=== PATIENT | male | born 1995 | race African-American/Black ===

== ENCOUNTER 2017-11-20 21:35 | Emergency (ER) | payer SELFPAY ==
[~2017-11-20] VITALS: Ht 182.9 cm; Wt 70.0 kg
[~2017-11-20 21:35] MED LIST: OMEP40CA2 PO; PROM25TA10 PO
[2017-11-20 21:50] VITALS: BP 144/81; PULSE 73; RESP 18; TEMP 98.5; O2SAT 98
[2017-11-21 03:26] VITALS: BP 140/91; PULSE 56; RESP 16; O2SAT 100
[2017-11-21] MEDS ORDERED: SODIUM CHLOR 0.9% 1000 ML INJ 1,000 ML IV ONE (03:30)
[2017-11-21] MEDS ORDERED: FAMOTIDINE 20 MG/2 ML VIAL IV PUSH SCH (03:30)
--- NOTE | 2017-11-21 03:32 | PD ---
HPI Chief Complaint: GI Complaint Time Seen by Provider: 03:16 Travel History International Travel<30 days: No Contact w/Intl Traveler<30days: No Traveled to known affect area: No History of Present Illness HPI The patient is a 22 year old male who presents to the [facility] [address] emergency department with a history of abdominal pain in the midepigastric area and center of the upper abdomen that he reports began at 5 AM yesterday. He reports that he had diarrhea intermittently throughout the day yesterday and 3 episodes today. He reports that the stool is green to brown in color. He denies having any mucus or blood in his stool. He reports having a sick contact from his nephew who had diarrhea 2 weeks ago. He denies having any nausea or vomiting. He reports having radiation of pain up into his chest. He reports having of burning sensation in his chest. He reports that he has had problems with indigestion and heartburn in the past, however he does not have a primary care physician currently. He has not been taking any [id number]-saepdgy acid reducers. He reports that he has been taking Pepto-Bismol without relief. He denies having any known fevers. He reports that he has had a dry cough since yesterday. On review of systems, he denies having any congestion, neck pain, shortness of breath, urinary symptoms, or neurologic symptoms. [facility] Past Medical History Narrative Medical The patient's past medical history is significant for having a heart murmur as a child, history of acid reflux and gastritis. He denies ever having endoscopy or colonoscopy. Cardiovascular Problems: Yes (MURMUR as a child) Diminished Hearing: No Integumentary: Yes (RECENT SKIN ERUPTIONS) Immunizations Current: No (unknown) Tetanus Vaccination: < 5 Years Influenza Vaccination: No Past Surgical History Surgical History: No Previous Surgery Social History Alcohol Use: No Tobacco Use: No Substance Use: No Allergies-Medications (Allergen,Severity, Reaction): Coded Allergies: Penicillins (Verified Allergy, Severe, 11/20/17) hives milk (Unverified Allergy, Mild, RASH, 11/20/17) Reported Meds & Prescriptions Reported Meds & Active Scripts Active No Active Prescriptions or Reported Medications Review of Systems Except as stated in HPI: all other systems reviewed are Neg General / Constitutional: No: Fever Eyes: No: Visual changes HENT: No: Headaches, Rhinorrhea, Congestion Cardiovascular: No: Chest Pain or Discomfort Respiratory: Positive: Cough, No: Shortness of Breath Gastrointestinal: Positive: Diarrhea, Abdominal Pain, Changes in Bowel Habits, Indigestion, No: Nausea, Vomiting, Hematemesis, Hematochezia, Loss of Appetite Genitourinary: No: Dysuria Musculoskeletal: No: Pain Skin: No Rash Neurologic: No: Weakness, Focal Abnormalities, Change in Mentation, Slurred Speech, Sensory Disturbance Psychiatric: No: Depression Endocrine: No: Polydipsia Hematologic/Lymphatic: No: Easy Bruising Physical Exam Narrative General: The patient is a well-developed well-nourished male in no acute distress. Head and Neck exam: Head is normocephalic atraumatic. Eyes: EOMI, pupils are equal round and reactive to light. Nose: Midline septum with pink mucous membranes Mouth: Dentition unremarkable. Moist mucus membranes. Posterior oropharynx is not erythematous. No tonsillar hypertrophy. Uvula midline. Airway patent. Neck: No palpable lymphadenopathy. No nuchal rigidity. No thyromegaly. Cardiovascular: Regular rate and rhythm without murmurs, gallops, or rubs. Lungs: Clear to auscultation bilaterally. No wheezes, rhonchi, or rales. Abdomen: Soft, with tenderness on palpation in the midepigastric area, no other tenderness on palpation of the other quadrants of the abdomen. No tenderness on palpation of McBurney's point. Normal bowel sounds are audible. No guarding , rebound, or rigidity. Negative Gutierrez sign. Extremities: No clubbing, cyanosis, or edema. 2+ pulses in all 4 extremities. No calf tenderness on palpation. Back: No costovertebral angle tenderness to palpation. Neurologic Exam: Grossly nonfocal Skin Exam: No rash noted. Intact skin that is warm and dry. Data Data Last Documented VS Vital Signs Date Time Temp Pulse Resp B/P (MAP) Pulse Ox O2 Delivery O2 Flow Rate FiO2 11/21/17 03:26 56 16 140/91 (107) 100 Room Air 11/20/17 21:50 98.5 Orders Orders Complete Blood Count With Diff (11/21/17 03:25) Comprehensive Metabolic Panel (11/21/17 03:25) C-Reactive Protein (Crp) (11/21/17 03:25) Lipase (11/21/17 03:25) Urinalysis - C+S If Indicated (11/21/17 03:25) Iv Access Insert/Monitor (11/21/17 03:25) Ecg Monitoring (11/21/17 03:25) Oximetry (11/21/17 03:25) Sodium Chlor 0.9% 1000 Ml Inj (Ns 1000 M (11/21/17 03:30) Famotidine Inj (Pepcid Inj) (11/21/17 03:30) Labs Laboratory Tests Test 11/21/17 03:42 11/21/17 03:45 White Blood Count 7.8 TH/MM3 Red Blood Count 5.40 MIL/MM3 Hemoglobin 16.4 GM/DL Hematocrit 46.9 % Mean Corpuscular Volume 86.8 FL Mean Corpuscular Hemoglobin 30.3 PG Mean Corpuscular Hemoglobin Concent 34.9 % Red Cell Distribution Width 13.2 % Platelet Count 262 TH/MM3 Mean Platelet Volume 7.7 FL Neutrophils (%) (Auto) 49.9 % Lymphocytes (%) (Auto) 34.2 % Monocytes (%) (Auto) 13.2 % Eosinophils (%) (Auto) 2.2 % Basophils (%) (Auto) 0.5 % Neutrophils # (Auto) 3.9 TH/MM3 Lymphocytes # (Auto) 2.7 TH/MM3 Monocytes # (Auto) 1.0 TH/MM3 Eosinophils # (Auto) 0.2 TH/MM3 Basophils # (Auto) 0.0 TH/MM3 CBC Comment DIFF FINAL Differential Comment Blood Urea Nitrogen 11 MG/DL Creatinine 1.17 MG/DL Random Glucose 99 MG/DL Total Protein 9.2 GM/DL Albumin 4.4 GM/DL Calcium Level 9.4 MG/DL Alkaline Phosphatase 113 U/L Aspartate Amino Transf (AST/SGOT) 21 U/L Alanine Aminotransferase (ALT/SGPT) 26 U/L Total Bilirubin 0.5 MG/DL Sodium Level 139 MEQ/L Potassium Level 3.8 MEQ/L Chloride Level 103 MEQ/L Carbon Dioxide Level 32.1 MEQ/L Anion Gap 4 MEQ/L Estimat Glomerular Filtration Rate 93 ML/MIN C-Reactive Protein LESS THAN 0.29 MG/DL Lipase 131 U/L Urine Color YELLOW Urine Turbidity CLEAR Urine pH 6.0 Urine Specific [place] 1.023 Urine Protein TRACE mg/dL Urine Glucose (UA) NEG mg/dL Urine Ketones NEG mg/dL Urine Occult Blood NEG Urine Nitrite NEG Urine Bilirubin NEG Urine Urobilinogen 2.0 MG/DL Urine Leukocyte Esterase TRACE Urine RBC 1 /hpf Urine WBC 3 /hpf Urine Squamous Epithelial Cells <1 /hpf Urine Hyaline Casts 7 /lpf Urine Granular Casts 1 /lpf Urine Mucus FEW /lpf Microscopic Urinalysis Comment CULT NOT INDICATED MDM Medical Decision Making Medical Screen Exam Complete: Yes Emergency Medical Condition: Yes Medical Record Reviewed: Yes Differential Diagnosis Gastritis, versus acid reflux, versus peptic ulcer disease, versus gastroenteritis, versus electrolyte derangements, versus dehydration Narrative Course During the course of the patient's emergency department visit, the patient's history, examination, and differential diagnosis were reviewed with the patient. The patient was placed on a educational aid with oximetry and frequent blood pressure monitoring. The patient had IV access obtained and blood work sent for analysis. The patient was initially provided normal saline 1 L IV fluid bolus, famotidine 20 mg IV. The patient's laboratory studies were reviewed and remarkable for white count of 7.8, hemoglobin 16.4, platelets 262 with 13.2 monocyte protein less than 0.29 , lipase 131, urinalysis shows trace leukocyte esterase otherwise unremarkable, culture not indicated The patient's symptoms are most consistent with a viral gastroenteritis as the patient has had diarrhea and a sick contact exposure from his nephew who had diarrhea 2 weeks ago. The patient also has a monocytosis on his complete blood count. The patient is instructed to push fluids and get plenty of rest. The patient is instructed to push fluids with electrolyte rich solution such as Pedialyte or Gatorade. The patient is instructed to avoid lactose containing food and drink for the next week as he may develop a temporary lactose intolerance. The patient is instructed to start a probiotic daily. The patient is resting comfortably and feels better, is alert and in no distress. The patient's results and examination findings were discussed with the patient. The repeat examination is unremarkable and benign. The history, exam, diagnostic testing, and current condition do not suggest any significant pathology to warrant further testing, continued ED treatment, admission, or surgical evaluation at this point. The vital signs have been stable. The patient does not have uncontrollable pain, intractable vomiting, or other significant symptoms. The patient's condition is stable and appropriate for discharge. The patient will pursue further outpatient evaluation with a primary care physician or other designated or consulting physician as indicated in the discharge instructions. The patient expressed understanding and was agreeable with this plan. Diagnosis Primary Impression: Gastroenteritis Additional Impression: Diarrhea Qualified Codes: R19.7 - Diarrhea, unspecified Referrals: [facility] 3 days Patient Instructions: Acute Diarrhea (ED), General Instructions Additional Instructions: The patient is instructed to push fluids and get plenty of rest. The patient is instructed to push fluids with electrolyte rich solution such as Pedialyte or Gatorade. The patient is instructed to avoid lactose containing food and drink for the next week as he may develop a temporary lactose intolerance. The patient is instructed to start a probiotic daily. Med/Other Pt SpecificInfo: No Meds Exist/No RX given Scripts No Active Prescriptions or Reported Meds Disposition: 01 DISCHARGE HOME Condition: Stable Vijaya Mathis MD Nov 21, 2017 03:32
[2017-11-21 03:59] LABS: AUTOMATED NEUTROPHIL # 3.9 TH/MM3 (1.8-7.7); BASOPHIL % 0.5 % (0.0-2.0); EOSINOPHIL # 0.2 TH/MM3 (0-0.4); EOSINOPHIL % 2.2 % (0.0-4.0); HEMATOCRIT 46.9 % (39.0-51.0); HEMOGLOBIN 16.4 GM/DL (13.0-17.0); LYMPH % 34.2 % (9.0-44.0); LYMPHOCYTE # 2.7 TH/MM3 (1.0-4.8); MEAN CELL VOLUME 86.8 FL (80.0-100.0); MEAN CORPUSCULAR HEMOGLOBIN 30.3 PG (27.0-34.0); MEAN CORPUSCULAR HGB CONC 34.9 % (32.0-36.0); MEAN PLATELET VOLUME 7.7 FL (7.0-11.0); MONO % 13.2 % (0.0-8.0); NEUT % 49.9 % (16.0-70.0); PLATELET COUNT 262 TH/MM3 (150-450); RED CELL DISTRIBUTION WIDTH 13.2 % (11.6-17.2); WHITE BLOOD COUNT 7.8 TH/MM3 (4.0-11.0)
[2017-11-21 04:03] LABS: BILIRUBIN, URINE NEG (NEG); BLOOD, URINE NEG (NEG); GLUCOSE,URINE NEG (NEG); HYALINE CAST, URINE 7 /lpf (RARE); KETONE, URINE NEG (NEG); MUCUS URINE FEW /lpf (OCC); NITRITE,URINE NEG (NEG); SQUAMOUS EPITHELIAL CELL URINE <1 /hpf (0-5); URINE COLOR YELLOW (YELLW/STRAW); URINE LEUKOCYTE ESTERASE TRACE (NEG)
[2017-11-21 04:16] LABS: ALBUMIN 4.4 GM/DL (3.4-5.0); ALT (GPT) 26 U/L (12-78); AST (GOT) 21 U/L (15-37); BICARBONATE 32.1 MEQ/L (21.0-32.0); BLOOD UREA NITROGEN 11 MG/DL (7-18); C-REACTIVE PROTEIN LESS THAN 0.29 MG/DL (0.00-0.30); CALCIUM 9.4 MG/DL (8.5-10.1); CHLORIDE 103 MEQ/L (98-107); CREATININE 1.17 MG/DL (0.60-1.30); GLOMERULAR FILTRATION RATE 93 ML/MIN (>89); GLUCOSE,RANDOM 99 MG/DL (74-106); SODIUM (NA) 139 MEQ/L (136-145)
[2017-11-21 04:18] LABS: ALKALINE PHOSPHATASE 113 U/L (45-117); TOTAL BILIRUBIN ADULT 0.5 MG/DL (0.2-1.0); TOTAL PROTEIN 9.2 GM/DL (6.4-8.2)
== END 2017-11-21 04:46 | disposition home or self-care (01) ==
LOC: NEPE 21:35
DX: K52.9 Noninfective gastroenteritis and colitis, unspecified (principal); Z88.0 Allergy status to penicillin
CPT/HCPCS: 80053; 81001; 83690; 85025; 86140; 96361; 96374; 99284; J7030